=== PATIENT | male | born 1935 | race Caucasian/White ===

== ENCOUNTER 2021-10-20 00:51 | Inpatient (IN) | payer OTHER, MEDICARE ==
[2021-10-20 02:47] LABS: BASO % 0.2 % (0-2.0); EOS % 0.7 % (0-4.5); HEMATOCRIT 40.4 % (35.4-49); LYMPH % 10.6 % (8-40); MCH 35.3 pg (25.7-33.7); MCHC 34.8 g/dl (32.0-35.9); MEAN CELL VOLUME 101.6 fl (80-96); MEAN PLT VOLUME 8.8 fl (7.5-11.1); MONO % 7.2 % (3.8-10.2); NEUT % 81.3 % (42.8-82.8); PLATELET COUNT 142 10^3/uL (134-434); RBC 3.97 M/mm3 (4.00-5.60); RDW 12.9 % (11.9-15.9); WHITE BLOOD COUNT 11.7 K/mm3 (4.0-10.0)
[2021-10-20 02:48] LABS: PH,URINE 5.5 (5.0-8.0); URINE APPEARANCE CLEAR; URINE BILIRUBIN NEGATIVE (NEGATIVE); URINE COLOR YELLOW; URINE GLUCOSE (UA) NEGATIVE (NEGATIVE); URINE KETONE NEGATIVE (NEGATIVE); URINE LEUK ESTERASE NEGATIVE (NEGATIVE); URINE NITRITE NEGATIVE (NEGATIVE); URINE PROTEIN NEGATIVE (NEGATIVE); URINE UROBILINOGEN 0.2 mg/dL (0.2-1.0)
[2021-10-20 03:05] LABS: CHLORIDE 108 mmol/L (98-107); SODIUM 139 mmol/L (136-145)
[2021-10-20 03:07] LABS: CALCIUM 8.9 mg/dL (8.5-10.1)
[2021-10-20 03:08] LABS: ALBUMIN 3.4 g/dl (3.4-5.0); ANION GAP 8 MMOL/L (8-16); BLOOD UREA NITROGEN 24.6 mg/dL (7-18); CO2 24 mmol/L (21-32); GLUCOSE,RANDOM 101 mg/dL (74-106)
[2021-10-20 03:11] LABS: SGOT/AST 20 U/L (15-37); SGPT/ALT 19 U/L (13-61)
[2021-10-20 03:12] LABS: BILIRUBIN,TOTAL 0.3 mg/dL (0.2-1); TOT PROT 6.8 g/dl (6.4-8.2)
[2021-10-20 03:14] LABS: ALK PHOS 74 U/L (45-117)
[2021-10-20 06:55] LABS: HEMATOCRIT 41.2 % (35.4-49); HEMOGLOBIN 14.3 GM/dL (11.7-16.9); MCH 35.4 pg (25.7-33.7); MCHC 34.8 g/dl (32.0-35.9); MEAN PLT VOLUME 9.2 fl (7.5-11.1); PLATELET COUNT 128 10^3/uL (134-434); RBC 4.04 M/mm3 (4.00-5.60); RDW 12.8 % (11.9-15.9); WHITE BLOOD COUNT 9.6 K/mm3 (4.0-10.0)
[2021-10-20 07:13] LABS: CHLORIDE 108 mmol/L (98-107); SODIUM 139 mmol/L (136-145)
[2021-10-20 07:17] LABS: ANION GAP 6 MMOL/L (8-16); BLOOD UREA NITROGEN 19.7 mg/dL (7-18); CO2 25 mmol/L (21-32)
[2021-10-20 07:18] LABS: CALCIUM 8.8 mg/dL (8.5-10.1); GLUCOSE,RANDOM 98 mg/dL (74-106)
[2021-10-20 07:21] LABS: CHOLESTEROL 130 mg/dL (50-200)
[2021-10-20 07:23] LABS: CREATININE 0.9 mg/dL (0.55-1.3)
[2021-10-20] MEDS ORDERED: diazePAM 5 MG TABLET PO PRN (09:43)
[2021-10-20] MEDS ORDERED: LOSARTAN POTASSIUM 25 MG TABLET PO SCH (10:00)
[2021-10-20] MEDS ORDERED: ASPIRIN 81 MG CHEWABLE TABLETS PO SCH (10:00)
[2021-10-20] MEDS ORDERED: TAMSULOSIN HCL 0.4 MG CAP PO SCH (10:00)
[2021-10-20 11:12] VITALS: BMI 29.9
[2021-10-20] MEDS ORDERED: PNEUMOC 13-VAL CONJ-DIP CRM/PF 0.5 ML DISP.SYRIN IM ONE (11:12)
[2021-10-20] MEDS ORDERED: PNEUMOCOCCAL 23 VACCINE 0.5 ML VIAL IM ONE (13:00)
[2021-10-20] MEDS ORDERED: PANTOPRAZOLE 40 MG TABLET PO SCH (13:15)
[2021-10-20 14:15] VITALS: BP 149/63; PULSE 62; TEMP 98.1
[2021-10-20] MEDS ORDERED: ROSUVASTATIN CA 5 MG TABLET (FP) PO SCH (22:00)
== END 2021-10-20 16:37 | disposition home or self-care (01) | DRG 313 ==
LOC: FER 00:51 → FM/S 03:32
PROVIDERS: ATTEND Nurse Practitioner Acute Care
DX: R07.89 Other chest pain (principal); K21.9 Gastro-esophageal reflux disease without esophagitis; I10 Essential (primary) hypertension; M48.00 Spinal stenosis, site unspecified; N40.0 Benign prostatic hyperplasia without lower urinary tract symptoms; E78.5 Hyperlipidemia, unspecified
CPT/HCPCS: 36415; 71045-TC-FY; 80048; 80053; 81003; 82465; 82550; 84484; 85025; 85027; 87086; 90732; 93005; 93306-TC; 99285-25; C9803; G0009; U0003; U0005

== ENCOUNTER 2024-05-11 01:40 | Emergency (ER) | payer OTHER, MEDICARE ==
[2024-05-11 01:56] VITALS: TEMP 98; BMI 29.5
[2024-05-11 02:49] LABS: BASO % 0.3 % (0-2.0); EOS % 2.3 % (0-4.5); HEMATOCRIT 42.7 % (35.4-49); HEMOGLOBIN 14.7 GM/dL (11.7-16.9); LYMPH % 14.1 % (8-40); MCH 35.2 pg (25.7-33.7); MCHC 34.4 g/dl (32.0-35.9); MEAN CELL VOLUME 102.2 fl (80-96); MEAN PLT VOLUME 8.5 fl (7.5-11.1); MONO % 7.3 % (3.8-10.2); PLATELET COUNT 159 10^3/uL (134-434); RBC 4.18 M/mm3 (4.00-5.60); RDW 13.1 % (11.9-15.9)
[2024-05-11 02:50] LABS: INR 1.04 (0.83-1.09)
[2024-05-11 03:06] LABS: ALBUMIN 3.7 g/dl (3.4-5.0); BLOOD UREA NITROGEN 18.8 mg/dL (7-18); CALCIUM 8.7 mg/dL (8.5-10.1)
[2024-05-11 03:11] LABS: BILIRUBIN,TOTAL 0.4 mg/dL (0.2-1); TOT PROT 7.1 g/dl (6.4-8.2)
[2024-05-11 03:12] VITALS: BP 175/73; PULSE 53; RESP 16
== END 2024-05-11 07:19 | disposition home or self-care (01) ==
LOC: FER 01:40
DX: R53.83 Other fatigue (principal); Z20.822 Contact with and (suspected) exposure to COVID-19
CPT/HCPCS: 0241U-QW; 36415; 71045-TC-FY; 80053; 84443; 84484; 85025; 85610; 93005; 99285-25